=== PATIENT | female | born 1990 | race Caucasian/White ===

== ENCOUNTER 2022-05-10 05:03 | Inpatient (IN) ==
[2022-05-10] MEDS ORDERED: OXYTOCIN/LR 20 UNIT/1,000 ML BAG IV ONE ×2 (05:19→16:00)
[2022-05-10] MEDS ORDERED: CARBOPROST TROMETHAMINE 250 MCG/ML AMP IM PRN (05:19)
[2022-05-10] MEDS ORDERED: TRANEXAMIC ACID 1,000 MG in SODIUM CHLORIDE 0.9% 100 ML IV PRN (05:19)
[2022-05-10] MEDS ORDERED: BUTORPHANOL 2 MG/ML VIAL IV PRN (05:19)
[2022-05-10] MEDS ORDERED: ACETAMINOPHEN 325 MG TABLET PO PRN ×2 (05:19→16:00)
[2022-05-10] MEDS ORDERED: METHYLERGONOVINE 0.2 MG/1 ML AMP IM PRN (05:19)
[2022-05-10] MEDS ORDERED: MEPERIDINE 50 MG/1 ML VIAL IV PRN (05:19)
[2022-05-10] MEDS ORDERED: ONDANSETRON 4 MG/2 ML VIAL IV PRN ×2 (05:19→16:00)
[2022-05-10] MEDS ORDERED: miSOPROStoL 200 MCG TABLET RECTAL PRN (05:19)
[2022-05-10] MEDS ORDERED: OXYTOCIN/LR 20 UNIT/1,000 ML BAG IV SCH (05:30)
[2022-05-10 06:16] LABS: Basophils % 0.3 % (0.0-0.8); Eosinophils # 0.1 10*3/uL (0.0-0.87); Eosinophils % 0.8 % (0.00-10.9); Hematocrit 27.8 VOL% (35.7-47.0); Hemoglobin 8.9 GM/DL (12.0-16.0); Immature Granulocytes % 0.8 %; Immature Granulocytes Absolute 0.07 #; Lymphocytes # 2.8 10*3/uL (1.4-4.0); Lymphocytes % 31.7 % (21.3-54.2); Mean Corpuscular Volume 78.8 FL (87-102); Mean Platelet Volume 9.7 FL (9.6-12.0); Monocytes # 0.6 10*3/uL (0.11-0.8); Monocytes % 7.1 % (1.7-12.7); NRBC # 0.02 10*3/uL; Neutrophils % 59.3 % (38.7-73.9); Platelet Count 326 T/CUMM (130-400); Red Blood Count 3.53 MC/CUMM (3.8-5.5); Red Cell Distribution Width 15.4 % (9.3-17.3); White Blood Count 8.93 T/CUMM (4-12)
[2022-05-10 06:30] LABS: INR 0.9; Partial Thromboplastin Time 26.8 SECS (23.7-32.9)
[2022-05-10 06:36] LABS: Alanine Aminotransferase 11 U/L (13-56); Albumin 2.1 G/DL (3.4-5.0); Alkaline Phosphatase 163 U/L (45-117); Aspartate Amino Transferase 14 U/L (0-37); Bilirubin,Direct < 0.050 MG/DL (0.0-0.20); Bilirubin,Total < 0.39 MG/DL (0.20-1.00); Blood Urea Nitrogen 9 MG/DL (7-18); Calcium 8.6 MG/DL (8.5-10.1); Carbon Dioxide 19 MMOL/L (21-32); Chloride 111 MMOL/L (98-107); Glucose 81 MG/DL (74-106); Osmolality,Calculated 272.7 MOS/KG (273-304); Potassium 3.9 MMOL/L (3.5-5.1); Sodium 138 MMOL/L (136-145); Total Protein 5.7 G/DL (6.4-8.2); Uric Acid 6.7 MG/DL (2.6-6.0)
[2022-05-10] MEDS ORDERED: hydrOXYzine HCL 25 MG/1 ML VIAL IM PRN (07:07)
[2022-05-10] MEDS ORDERED: NALOXONE 0.4 MG/ML VIAL IV PRN (07:07)
[2022-05-10] MEDS ORDERED: diphenhydrAMINE 50 MG/1 ML VIAL IV PRN ×2 (07:07)
[2022-05-10] MEDS ORDERED: PROMETHAZINE 25 MG/1 ML VIAL IM ONE (07:07)
[2022-05-10] MEDS ORDERED: ONDANSETRON 4 MG/2 ML VIAL IV ONE (07:07)
[2022-05-10] MEDS ORDERED: FAMOTIDINE 20 MG/2 ML VIAL IV ONE (07:09)
[2022-05-10] MEDS ORDERED: CITRIC ACID/SODIUM CITRATE 30 ML UDCUP PO ONE (07:09)
[2022-05-10] MEDS ORDERED: LACTATED RINGERS 1,000 ML IV ONE (07:09)
[2022-05-10] MEDS ORDERED: fentaNYL 2 MCG/ROPIV 0.2% EPID 100 ML EPIDURAL SCH (07:30)
[2022-05-10] MEDS ORDERED: SODIUM CHLORIDE 0.9% 1,000 ML IV PRN (08:27)
[2022-05-10] MEDS: ePHEDrine 50 MG/ML VIAL IV PRN ×2 (09:16→09:17)
[2022-05-10] MEDS: LACTATED RINGERS 1,000 ML IV SCH ×2 (09:28→13:37)
[2022-05-10] MEDS ORDERED: OXYTOCIN/LR 30 UNIT/1,000 ML BAG IV ONE (09:33)
[2022-05-10 13:46] LABS: Bilirubin,Urine Negative (Negative); Blood, Urine Small mg/dL (Negative); Glucose,Urine (UA) Negative (Negative); Ketones,Urine Trace mg/dL (Negative); Nitrite,Urine Negative (Negative); Protein,Urine >=300 mg/dL (Negative); Urine Appearance Clear (Clear); Urine Color Yellow (Yellow); Urine Urobilinogen 0.2 eU/dL (<2.0)
[2022-05-10 13:48] LABS: Hyaline Casts,Urine 3 /LPF (0-3); Mucus,Urine Many /LPF (Occasional); RBC,Urine 18 /HPF (0-4); Squamous Epithelial Cell,Urine Occasional /HPF (0-10)
[2022-05-10] MEDS ORDERED: miSOPROStoL 200 MCG TABLET ONE (13:51)
[2022-05-10] MEDS ORDERED: TRANEXAMIC ACID 1,000 MG/10 ML VIAL ONE (13:51)
[2022-05-10] MEDS ORDERED: CARBOPROST TROMETHAMINE 250 MCG/ML AMP IM ONE (13:52)
[2022-05-10] MEDS ORDERED: METHYLERGONOVINE 0.2 MG/1 ML AMP ONE (13:52)
[2022-05-10] MEDS ORDERED: SODIUM CHLORIDE 0.9% 100 ML IV ONE (13:52)
[2022-05-10 15:18] LABS: Protein/Creatinine Ratio,Urine 0.6 RATIO
[2022-05-10] MEDS ORDERED: BISACODYL 10 MG SUPP RECTAL PRN (16:00)
[2022-05-10] MEDS ORDERED: BENZOCAINE 20%/MENTHOL 0.5% SPRAY 56 GM CAN TOP PRN (16:00)
[2022-05-10] MEDS ORDERED: oxyCODONE/ACETAMINOPHEN 5-325 MG TABLET PO PRN ×2 (16:00)
[2022-05-10] MEDS ORDERED: DIPH/TET/ACEL PERT BOOSTER VACCINE 0.5 ML VIAL IM ONE (16:00)
[2022-05-10] MEDS ORDERED: MEASLES/MUMPS/RUBELLA VACCINE 0.5 ML VIAL SUBCUT ONE (16:00)
[2022-05-10] MEDS ORDERED: HYDROCORTISONE 2.5% RECTAL CREAM 30 GM TUBE TOP PRN (16:00)
[2022-05-10] MEDS ORDERED: LANOLIN 50% CREAM 0.3 OZ TUBE TOP PRN (16:00)
[2022-05-10] MEDS ORDERED: RHO(D) IMMUNE GLOBULIN 300 MCG SYRINGE IM ONE (16:00)
[2022-05-10] MEDS ORDERED: WITCH HAZEL PADS 100/JAR TOP PRN (16:00)
[2022-05-10 16:04] LABS: Cord Arterial Blood HCO3 17.3 MMOL/L
[2022-05-10 16:07] LABS: Cord Venous Blood HCO3 18.1 MMOL/L; Cord Venous Blood PCO2 45.4 MMHG; Cord Venous Blood PO2 20.8
[2022-05-10] MEDS: PIPERACILLIN/TAZOBACTAM 3,375 MG in SODIUM CHLORIDE 0.9% 100 ML IV SCH (16:47)
[2022-05-10] MEDS: IBUPROFEN 800 MG TABLET PO PRN (19:48)
[2022-05-10] MEDS: DOCUSATE SODIUM 100 MG CAPSULE PO SCH (21:52)
[2022-05-11] MEDS: PIPERACILLIN/TAZOBACTAM 3,375 MG in SODIUM CHLORIDE 0.9% 100 ML IV SCH (01:48)
[2022-05-11 05:24] LABS: Basophils # 0.1 10*3/uL (0.0-0.2); Basophils % 0.3 % (0.0-0.8); Eosinophils % 0.2 % (0.00-10.9); Hematocrit 24.1 VOL% (35.7-47.0); Hemoglobin 7.5 GM/DL (12.0-16.0); Immature Granulocytes % 0.6 %; Immature Granulocytes Absolute 0.09 #; Lymphocytes # 2.7 10*3/uL (1.4-4.0); Lymphocytes % 17.9 % (21.3-54.2); Mean Corpuscular HGB Conc 31.1 GM/DL (32-36); Mean Corpuscular Volume 79.3 FL (87-102); Mean Platelet Volume 9.6 FL (9.6-12.0); Monocytes # 0.9 10*3/uL (0.11-0.8); Monocytes % 5.7 % (1.7-12.7); Neutrophils % 75.3 % (38.7-73.9); Platelet Count 254 T/CUMM (130-400); Red Blood Count 3.04 MC/CUMM (3.8-5.5); Red Cell Distribution Width 15.6 % (9.3-17.3); White Blood Count 15.01 T/CUMM (4-12)
[2022-05-11] MEDS: FERROUS SULFATE 325 MG TABLET PO SCH ×2 (08:26→20:12)
[2022-05-11] MEDS: DOCUSATE SODIUM 100 MG CAPSULE PO SCH ×2 (08:26→20:12)
[2022-05-11] MEDS: IBUPROFEN 800 MG TABLET PO PRN (13:05)
[2022-05-11] MEDS: ASCORBIC ACID 500 MG TABLET PO SCH ×2 (16:44→21:24)
[2022-05-12] MEDS: IBUPROFEN 800 MG TABLET PO PRN ×2 (00:35→09:09)
[2022-05-12 08:57] VITALS: BP 132/84
[2022-05-12] MEDS: ASCORBIC ACID 500 MG TABLET PO SCH (09:06)
[2022-05-12] MEDS: FERROUS SULFATE 325 MG TABLET PO SCH (09:06)
[2022-05-12] MEDS: DOCUSATE SODIUM 100 MG CAPSULE PO SCH (09:06)
[2022-05-12 09:12] LABS: Basophils % 0.3 % (0.0-0.8); Eosinophils # 0.1 10*3/uL (0.0-0.87); Eosinophils % 1.3 % (0.00-10.9); Hematocrit 25.3 VOL% (35.7-47.0); Hemoglobin 7.8 GM/DL (12.0-16.0); Immature Granulocytes % 1.2 %; Immature Granulocytes Absolute 0.11 #; Lymphocytes # 1.8 10*3/uL (1.4-4.0); Lymphocytes % 19.3 % (21.3-54.2); Mean Corpuscular HGB Conc 30.8 GM/DL (32-36); Mean Corpuscular Volume 80.8 FL (87-102); Mean Platelet Volume 9.1 FL (9.6-12.0); Monocytes # 0.5 10*3/uL (0.11-0.8); Neutrophils % 72.9 % (38.7-73.9); Platelet Count 235 T/CUMM (130-400); Red Blood Count 3.13 MC/CUMM (3.8-5.5); Red Cell Distribution Width 15.9 % (9.3-17.3); White Blood Count 9.31 T/CUMM (4-12)
== END 2022-05-12 13:02 | disposition home or self-care (01) | DRG 807 ==
LOC: N.LDOUT 05:03 → N.LD 05:05 → N.OB 20:40
PROVIDERS: ADMIT Obstetrics & Gynecology; ATTEND Obstetrics & Gynecology